=== PATIENT | female | born 1950 | race Caucasian/White ===

== ENCOUNTER 2017-02-08 18:58 | Outpatient (CLI) | payer MEDICARE ==
--- NOTE | 2017-02-08 19:46 | RAD ---
FOUR VIEWS LEFT KNEE 02/08/17 HISTORY: Left knee pain. AP, lateral and both oblique views left knee is obtained. There is some joint space narrowing in the medial compartment of the left knee. Osteophyte seen in the medial and lateral compartments of the left knee. Some mild osteophytes seen i n the anterior compartment. IMPRESSION: Findings compatible with moderate left knee osteoarthritic changes. POS: EDUARD
== END 2017-02-08 18:59 | disposition home or self-care (01) ==
LOC: SCSRAD 18:58
PROVIDERS: ATTEND Physical Medicine & Rehabilitation
DX: M25.562 Pain in left knee (principal); M17.12 Unilateral primary osteoarthritis, left knee

== ENCOUNTER 2017-09-15 14:17 | Outpatient (CLI) | payer MEDICARE ==
[2017-09-15 16:17] LABS: Hemoglobin 15.3 g/dL (12.0-16.0); Mean Corpuscular HGB CONC 34.5 g/dL (32.0-36.0); Mean Corpuscular Hemoglobin 31.9 pg (27.0-31.0); Mean Corpuscular Volume 92.7 fL (78.0-98.0); Mean Platelet Volume 8.1 fL (7.4-10.4); Platelet Count 278 thou/uL (130-400); RBC Distribution Width 11.6 % (11.5-14.5); White Blood Cell (WBC) Count 7.7 thou/uL (4.8-10.8)
[2017-09-15 16:23] LABS: INR-International Normal Ratio 0.9; PTT 25.4 SEC (22.9-36.1)
[2017-09-15 16:36] LABS: ALT (SGPT) 12 U/L (8-55); AST (SGOT) 14 U/L (5-34); Albumin 4.5 g/dL (3.4-4.8); Alkaline Phosphatase 63 U/L (40-150); Anion Gap 15 mmol/L (10-20); BUN (Urea Nitrogen) 13 mg/dL (9.8-20.1); Bilirubin, Total 0.6 mg/dL (0.2-1.2); Calc. Creatinine Clearance 0 mL/min (70-130); Calcium 10.1 mg/dL (7.8-10.44); Carbon Dioxide 25 mmol/L (23-31); Cardiac Risk 4.1 (Less than 4.5); Chloride 104 mmol/L (98-107); Cholesterol 313 mg/dl (< 200 Desired); Estimated GFR-MDRD 68; Globulin 2.8 g/dL (2.4-3.5); Glucose 87 mg/dL (80-115); HDL Cholesterol 76 mg/dL (>60 Neg Risk); LDL Cholesterol, Calculated 212 mg/dL; Potassium 3.6 mmol/L (3.5-5.1); Protein, Total 7.3 g/dL (6.0-8.3); Sodium 140 mmol/L (136-145); Triglycerides 125 mg/dL (Less than 150)
== END 2017-09-15 14:18 | disposition home or self-care (01) ==
LOC: LABBT 14:17
PROVIDERS: ATTEND Internal Medicine Cardiovascular Disease
DX: Z01.812 Encounter for preprocedural laboratory examination (principal); R07.9 Chest pain, unspecified
CPT/HCPCS: 80053; 80061; 85027; 85610; 85730; 93005; 93010

== ENCOUNTER → 2017-09-20 | Day surgery (SDC) | payer MEDICARE ==
[2017-09-15 14:32] VITALS: BMI 37.8
[~2017-09-20] MED LIST: Fentanyl 100 MCG/2 ML VIAL ONE; Iopamidol 370 76% 100 ML VIAL ONE; Lidocaine 1% (PF) 30 ML VIAL ONE; Midazolam HCl 2 mg/2 ml Vial ONE
== END ==
LOC: CCL 06:05
PROVIDERS: ATTEND Internal Medicine Cardiovascular Disease
DX: R07.89 Other chest pain (principal); I25.119 Atherosclerotic heart disease of native coronary artery with unspecified angina pectoris; I10 Essential (primary) hypertension; F41.9 Anxiety disorder, unspecified; F32.9 Major depressive disorder, single episode, unspecified; M19.90 Unspecified osteoarthritis, unspecified site; M10.9 Gout, unspecified; E78.00 Pure hypercholesterolemia, unspecified; Z88.1 Allergy status to other antibiotic agents; Z88.8 Allergy status to other drugs, medicaments and biological substances; Z79.899 Other long term (current) drug therapy; Z79.52 Long term (current) use of systemic steroids
CPT/HCPCS: 93458; C1769; 99152; J1644; J2001; J2250; J3010

== ENCOUNTER 2022-06-09 15:35 | Outpatient (CLI) | payer MEDICARE | END 2022-06-09 15:36 | disposition home or self-care (01) | LOC: SCSRAD 15:35 | PROVIDERS: ATTEND Nurse Practitioner Family | DX: M25.572 Pain in left ankle and joints of left foot (principal); M54.6 Pain in thoracic spine; M54.2 Cervicalgia; M25.562 Pain in left knee; M54.31 Sciatica, right side; M25.561 Pain in right knee; M47.812 Spondylosis without myelopathy or radiculopathy, cervical region; M47.814 Spondylosis without myelopathy or radiculopathy, thoracic region; M47.816 Spondylosis without myelopathy or radiculopathy, lumbar region; M17.0 Bilateral primary osteoarthritis of knee | CPT/HCPCS: 72040; 72072; 72100 ==